=== PATIENT | male | born 1945 | race Two or more races ===

== ENCOUNTER → 2019-06-14 | Day surgery (SDC) | payer MEDICARE, OTHER ==
[2019-06-12 10:54] LABS: BASOPHILS % 0.4 % (0.0-1.0); EOSINOPHILS # (AUTO) 0.1 (0.0-0.4); HEMATOCRIT 45.1 % (38.2-49.6); HEMOGLOBIN 15.6 g/dL (14.0-18.0); LYMPHOCYTES % 18.3 % (18.0-39.1); MEAN CORPUSCULAR HEMOGLOBIN 31.6 pg (28-32); MEAN CORPUSCULAR HGB CONC 34.6 g/dL (31-35); MEAN CORPUSCULAR VOLUME 91.3 fL (81-99); MONOCYTES # (AUTO) 0.4 (0.2-0.8); MONOCYTES % 7.2 % (4.4-11.3); NEUTROPHILS # (AUTO) 3.8 (2.1-6.9); NEUTROPHILS % 72.7 % (38.7-80.0); PLATELET COUNT 212 x10e3/uL (140-360); RED BLOOD COUNT 4.94 x10e6/uL (4.3-5.7); RED CELL DISTRIBUTION WIDTH 12.4 % (11.7-14.4)
[2019-06-12 11:13] LABS: ALANINE AMINOTRANSFERASE 14 IU/L (0-55); ALBUMIN 3.9 g/dL (3.5-5.0); ALBUMIN/GLOBULIN RATIO 1.1 (0.8-2.0); ALKALINE PHOSPHATASE 67 IU/L (40-150); BLOOD UREA NITROGEN 7 mg/dL (7-26); BUN/CREATININE RATIO 7 (6-25); CALCIUM 9.9 mg/dL (8.4-10.2); CARBON DIOXIDE 26 mmol/L (22-29); CHLORIDE 101 mmol/L (98-107); CREATININE, SERUM 1.07 mg/dL (0.72-1.25); EST GLOMERULAR FILTRATION RATE > 60 ML/MIN (60-); GLUCOSE 103 mg/dL (74-118); SODIUM 135 mmol/L (136-145)
[~2019-06-14] VITALS: Ht 157.5 cm; Wt 60.3 kg
[2019-06-14] VITALS (9 sets, daily range): BP systolic 117–135; BP diastolic 59–87
[~2019-06-14] MED LIST: ASPIR 8181 MG PO; FENTANYL CITRATE/PF 100MCG/2 ML INJ ONE; HEPARIN SOD/SOD CHLORIDE 2,000 ML ONE; IOPAMIDOL 300MG/ML 100 ML INFUS..BTL IV ONE; LIDOCAINE HCL 2% LOCAL 20 ML VIAL ONE; MIDAZOLAM HCL 2 MG/2 ML VIAL ONE; SODIUM CHLORIDE 0.9% 1000ML 1,000 ML ONE; VERAPAMIL HCL 2.5 MG/ML 2 ML VIAL ONE
--- NOTE | 2019-06-14 13:00 | NUR ---
1300pPt Received Rm #[id number] Report from CAMERON Goode. Identfierx2. Back to baseline orientation.Oriented and appropriate.PERRLA,respirations even and unlabored on RA.Pulsesx4 PPx4PT/DP and marked.Cap refll brisk<3 sec. Tr band down at 1330 an ddc home. Skin warm and dry, integrity appears intact. IVg#20 in left arm at 100cc/hr va contoller device.Presents healthy w/o s/s of infiltration or complaint.Abdomen soft and supple,pt offered toileting,denies need to urinate or defecate. No personal affects with patient. Family at bedside. Pt and family verbalize understanding of care. Currently w/o pain or need. ds/rn
--- NOTE | 2019-06-14 13:30 | NUR ---
1330 RADIAL Compression removal: Initial Cuff volume 12 cc 1330 -3 cc Removed No hematoma/bleeding noted with normal neurovascular function. 1345 -5cc Removed No hematoma/ bleeding noted with normal neurovascular function. 1400 -5cc Removed No hematoma/bleeding noted with normal neurovascular function. Air removal completed. Stasis achieved sterile 2x2,Tegaderm, Coban dressing No hematoma, bleeding noted with normal neurovascular function. Wrist splint in place. Pt instructed on POC. Ds/Rn
--- NOTE | 2019-06-14 14:15 | NUR ---
1415Pt meets DC criteria. RT arm site, assessed for s/s of complication and presence of hematoma. Skin warm, dry, no discolor, and pulses present. IV removed from left arm. Distal tip appears intact. VS WNL. Pt denies pain, sob, or need at this time. Family at bedside. Review of discharge paperwork and follow up instructions. verbalized understanding. Pt to wheelchair and transported to front of hospital. Transferred to private vehicle under own strength w/o incident with DC paperwork in hand. - ds/rn
--- NOTE | 2019-06-14 19:28 | Operative Report ---
DATE OF PROCEDURE: 06/14/2019 SURGEON: Rio Khan MD INDICATION: Peripheral arterial disease. PROCEDURES PERFORMED: 1. Abdominal aortogram. 2. Selective catheter placement, third-order from the right radial artery to the right femoral artery with unilateral extremity angiogram. COMPLICATIONS: None. RECOMMENDATIONS: Medical therapy. DESCRIPTION OF PROCEDURE: Access obtained in the right radial artery. A 5-[place] sheath was placed. Angiography of the abdominal aorta demonstrated widely patent abdominal aorta and iliacs bilaterally. Catheter was then advanced from the right radial artery to the right femoral artery. No peripheral arterial disease. Three-vessel runoff bilaterally. No complications. Right wrist TR band applied. The patient discharged home the same day. Rio Khan MD [facility]/MODL /[id number]
== END | disposition home or self-care (01) ==
LOC: CATH LAB 10:28
PROVIDERS: ATTEND Internal Medicine Interventional Cardiology
DX: I73.9 Peripheral vascular disease, unspecified (principal); Z01.812 Encounter for preprocedural laboratory examination; Z79.82 Long term (current) use of aspirin
CPT/HCPCS: 36415; 75625; 75710; 80053; 85025; C1769 ×2; J2001; J2250; J3010; J7030; Q9967; 36247; 99152